=== PATIENT | female | born 1990 | race American Indian/Alaskan Native ===

== ENCOUNTER 2017-03-31 21:30 | Outpatient (CLI) | payer MEDICAID ==
[2017-03-31 22:09] VITALS: BP 164/91
== END 2017-03-31 22:55 | disposition left against medical advice (07) ==
LOC: TRG 21:30
PROVIDERS: ATTEND Obstetrics & Gynecology
DX: O47.1 False labor at or after 37 completed weeks of gestation (principal); Z87.891 Personal history of nicotine dependence; Z3A.39 39 weeks gestation of pregnancy